=== PATIENT | female | born 1985 | race Caucasian/White ===

== ENCOUNTER 2017-03-14 00:14 | Emergency (ER) | payer OTHER ==
[2014-09-17 12:38] VITALS: BMI 38.1
[~2017-03-14 00:14] MED LIST: ADDERALL 30 MG30 MG PO; GLUCOPHAGE1000 MG PO; HYDROCODON-ACE1 EAC7 PO; IBUPROFEN800 MG PO; KEFLEX500 MG PO; ZOFRAN4 MG PO
== END 2017-03-14 01:16 | disposition home or self-care (01) ==
LOC: D.ER 00:14
DX: L02.211 Cutaneous abscess of abdominal wall (principal); E11.9 Type 2 diabetes mellitus without complications

== ENCOUNTER 2017-04-07 01:49 | Emergency (ER) | payer OTHER ==
[2014-09-17 12:38] VITALS: BMI 38.1
== END 2017-04-07 02:39 | disposition home or self-care (01) ==
LOC: D.ER 01:49
DX: S16.1XXA Strain of muscle, fascia and tendon at neck level, initial encounter (principal); Y04.2XXA Assault by strike against or bumped into by another person, initial encounter; Y93.89 Activity, other specified; Y92.019 Unspecified place in single-family (private) house as the place of occurrence of the external cause; S09.90XA Unspecified injury of head, initial encounter; M54.9 Dorsalgia, unspecified; E11.9 Type 2 diabetes mellitus without complications; F17.200 Nicotine dependence, unspecified, uncomplicated

== ENCOUNTER → 2017-04-09 11:40 | Outpatient (CLI) | payer OTHER ==
[2014-09-17 12:38] VITALS: BMI 38.1
== END | disposition home or self-care (01) ==
LOC: D.MRI 11:40
DX: S09.90XA Unspecified injury of head, initial encounter (principal); X58.XXXA Exposure to other specified factors, initial encounter; Y93.89 Activity, other specified; Y92.89 Other specified places as the place of occurrence of the external cause; H33.20 Serous retinal detachment, unspecified eye; H93.8X9 Other specified disorders of ear, unspecified ear

== ENCOUNTER → 2017-04-15 09:47 | Outpatient (CLI) | payer OTHER ==
[2014-09-17 12:38] VITALS: BMI 38.1
== END | disposition home or self-care (01) ==
LOC: D.MRI 09:47
DX: S09.90XA Unspecified injury of head, initial encounter (principal); X58.XXXA Exposure to other specified factors, initial encounter; Y93.89 Activity, other specified; Y92.89 Other specified places as the place of occurrence of the external cause; H33.20 Serous retinal detachment, unspecified eye

== ENCOUNTER → 2017-12-09 12:45 | Outpatient (CLI) | payer OTHER ==
[2014-09-17 12:38] VITALS: BMI 38.1
== END | disposition home or self-care (01) ==
LOC: D.CT 12:45
DX: R10.9 Unspecified abdominal pain (principal)

== ENCOUNTER → 2018-01-10 10:08 | Outpatient (CLI) | payer OTHER ==
[2014-09-17 12:38] VITALS: BMI 38.1
== END | disposition home or self-care (01) ==
LOC: D.US 01-06 14:30 → D.MRI 01-06 15:00 → D.US 10:00
DX: Z87.820 Personal history of traumatic brain injury (principal); N28.9 Disorder of kidney and ureter, unspecified